=== PATIENT | male | born 1940 | race Caucasian/White ===

== ENCOUNTER → 2016-03-30 | Outpatient (CLI) | payer OTHER, BC ==
[~2016-03-30] VITALS: Ht 167.6 cm; Wt 82.5 kg
[~2016-03-30] MED LIST: ATORVASTATIN CA40 MG PO; CLONAZEPAM 1 MG1 M1 PO; CYMBALTA60 MG PO; FLOMAX0.4 MG PO; LINZESS145 MCG PO; LOSARTAN-HCTZ1 EAC3 PO; MEDROLDOSEPACK PO; NORVASC5 MG PO; ZETIA10 MG PO
--- NOTE | ~2016-03-30 | HPC ---
[facility] [address] [place] [address] PAIN MANAGEMENT CONSULTATION Name: GISSELLE DE LA TORRE Dulce Maria Room #: REG [facility]#: [id number] Admission: 03/30/16 Attend Phys: Debra Gray MD Discharge: Date of : 42 Report #: [id number] THIS REPORT FOR: //name// CC: Brian Gray PRIMARY CARE PHYSICIAN: Ann Hayden M.D. CHIEF COMPLAINT: Low back pain. HISTORY OF PRESENT ILLNESS: The patient is a 75-year-old gentleman who has been referred to the pain clinic because of low back pain. He has been experiencing pain for about 5 years. He describes it as constant pain involving the center of his back and down into both his left and right side. He notes that the pain is worse when he is bending over for any length of time. Sitting in a chair can be problematic, riding in a car, walking stairs and lying down improves his pain. He describes as continuous, steady, constant, shooting, burning, aching and rates it as an 8/10. He denies any injury to his back. PAST MEDICAL HISTORY: Heart disease, colon problems, hypertension, joint disease/arthritis. ALLERGIES: No known drug allergies. MEDICATIONS: Lipitor 80 mg 1 daily, amlodipine 5 mg tablets one daily, losartan/hydrochlorothiazide 100/25, Coreg 3.125 mg, Linzess 14.5, clonazepam 1 tablet daily, Flomax 0.4 mg, Duloxetine 60 mg, Zetia 10 mg. PAST SURGICAL HISTORY: Total right hip September 2009, colon surgery September 2007. 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 REVIEW OF SYSTEMS: A 14-point review of systems in the chart indicates generally good health, wears glasses, changes in bowel, reoccurring headaches, tremors, nervousness, depression. LABORATORY: MRI of the lumbar spine dated 03/16/2016: 1. L1-L2 shows severe degenerative disk disease with diffuse disk bulge. There is mild to moderate facet osteoarthritis. Mild spinal stenosis/moderate to severe left neural foraminal narrowing and mild right neural foraminal narrowing. 2. L2-L3, there is severe degenerative disk disease with diffuse disk bulge. There is moderate bilateral facet arthrosis causing moderate spinal stenosis and moderate bilateral neural foraminal narrowing. 3. L3-L4, moderate to severe degenerative disk disease. There is mild to [address] [address] PAIN MANAGEMENT CONSULTATION Name: GISSELLE DE LA TORRE [facility] [id number] Admission: 03/30/16 Attend Phys: Debra Gray MD Discharge: Date of : 42 Report #: [id number] moderate bilateral facet arthrosis. This causes mild spinal stenosis, mild left neural foraminal narrowing and moderate to severe right neural foraminal narrowing. 4. L4-L5, there is mild degenerative disk disease with mild disk bulge. There is severe bilateral facet osteoarthritis. This causes moderate spinal stenosis and yvajelqu-sc-sxcuzz bilateral neural foraminal narrowing. PHYSICAL EXAMINATION: Blood pressure is 153/80, pulse 77, respiratory rate 14, room air saturation 96%. The patient has not fallen in the last three months. His BMI is 29.4, height 167 cm, weight 82 kilograms. The patient has pain and discomfort in the lower portion of his back. He notes that pain goes down into both buttocks. He describes it burning and aching, pulling sensation. He rates it as an 8/10. Bending, sitting, climbing stairs, walking can exacerbate his pain and discomfort. The patient notes pain and discomfort after standing for a brief period of time in front of the mirror or in the kitchen sink area. Has difficulty walking through shopping centers without the use of the cart. He stands and leans forward on the cart when in line because of the pain and discomfort. IMPRESSION: Findings consistent with spinal stenosis with lumbar radicular pain down into both buttocks. RECOMMENDATIONS: We discussed treatment options with the patient. Risks and benefits of an epidural steroid injection were discussed. The patient at this juncture would like to consider the most conservative approach. We will try a Medrol Dosepak in the interim. He will follow up in the near future. Option of an epidural steroid injection has been given. We will see how things go with the conservative approach and consider an epidural steroid injection in the future. We would like to thank you for letting us participate in his care. We hope he continues to improve. <ELECTRONICALLY SIGNED> By: Debra Gray MD 04/17/16 1018 1519 0056 Debra Gray MD /nt
[2016-03-30 13:58] VITALS: BP 153/80
== END | disposition home or self-care (01) ==
LOC: PAIN 07:35
DX: M47.896 Other spondylosis, lumbar region (principal); M48.06 Spinal stenosis, lumbar region; I11.9 Hypertensive heart disease without heart failure; M19.90 Unspecified osteoarthritis, unspecified site

== ENCOUNTER → 2016-08-29 | Outpatient (CLI) | payer OTHER, BC ==
[~2016-08-29] VITALS: Ht 167.6 cm; Wt 79.2 kg
--- NOTE | ~2016-08-29 | HPC ---
[facility] [address] [address] PAIN MANAGEMENT CONSULTATION Name: GISSELLE DE LA TORRE Room #: REG [facility]#: [id number] Admission: 08/29/16 Attend Phys: Debra Gray MD Discharge: Date of : 42 Report #: [id number] THIS REPORT FOR: //name// CC: Brian Gray DATE OF SERVICE: 08/29/2016 DATE OF SERVICE: 08/29/2016 FOLLOWUP COMPLAINT: Here for an injection. The last one was greater than 90% improved for a number of months. FOLLOWUP HISTORY: The patient is a very pleasant 75-year-old gentleman, who has been seen in the pain clinic because of the pain and discomfort, which radiates down into his buttocks bilaterally. He rates his pain as an 8/10. After the last injection, he noted good relief. There was a considerable amount of improvement and he was able to engage in activities of daily living. He would not be able to without their use. At this juncture, he has noted return of the pain. Bending, sitting, stairs and walking can exacerbate his discomfort. He notes some improvement with use of his medications as well as with resting and lying down. IMPRESSION: 1. Spinal stenosis. 2. Lumbar radiculopathy. 3. L4-L5, there is degenerative disk with mild disk bulge. 4. 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 5. There is moderate spinal stenosis with hwbtuaub-jo-jbfglg bilateral neural foraminal narrowing. 6. L3-L4, mqbbdjgd-ht-yxqbol degenerative disk disease with diffuse bulge. This causes some mild spinal stenosis, mild left neural foraminal narrowing and moderate to severe right neural foraminal narrowing. RECOMMENDATIONS: We discussed treatment options with the patient. Risks and benefits of an epidural steroid injection were again reviewed. Possible complications were explained. They can include infection, bleeding, headache, nerve damage, muscle soreness, but are not limited to the preceding. The patient elects to proceed. PROCEDURE NOTE: The patient was placed in the prone position. Fluoroscopy was used to identify the L4-L5 interspace. This area had been sterilely prepped with Betadine and infiltrated with 0.25% bupivacaine. Total of 80 mg Depo-Medrol, 40 mg triamcinolone and 2 mL of 0.25% bupivacaine was injected. The patient tolerated the procedure well. There were no complications. We [address] [address] PAIN MANAGEMENT CONSULTATION Name: GISSELLE DE LA TORRE Room #: REG CLI [facility]#: [id number] Admission: 08/29/16 Attend Phys: Debra Gray MD Discharge: Date of : 42 Report #: [id number] would like to thank you for letting us participate in his care. We hope he continues to improve. By: 1426 1452 Debra Gray MD /nt
[2016-08-29 10:21] VITALS: BP 151/98
== END | disposition home or self-care (01) ==
LOC: PAIN 07:04
DX: M54.16 Radiculopathy, lumbar region (principal); M48.06 Spinal stenosis, lumbar region; M51.36 Other intervertebral disc degeneration, lumbar region

== ENCOUNTER → 2016-10-31 | Outpatient (CLI) | payer OTHER, BC ==
[~2016-10-31] VITALS: Ht 167.6 cm; Wt 78.8 kg
--- NOTE | ~2016-10-31 | HPC ---
[facility] [place] [address] [place] [address] PAIN MANAGEMENT CONSULTATION Name: GISSELLE DE LA TORRE Room #: REG [facility]#: [id number] Admission: 10/31/16 Attend Phys: Debra Gray MD Discharge: Date of : 42 Report #: [id number] THIS REPORT FOR: //name// CC: Brian Gray DATE OF SERVICE: 10/31/2016 CHIEF COMPLAINT: Pain down into the low back and into both buttocks and down into the right leg. HISTORY OF PRESENT ILLNESS: The patient is a 75-year-old gentleman who has been seen in the pain clinic because of lumbar radiculopathy. He has undergone epidural steroid injections and gleaned significant improvement after the last injection. He rates his pain as an 8/10 at this juncture. He has not had any problems after the previous injection. As you recall, he has had problems with his back for about the last 5 years. He notes worsening of pain with standing, walking and bending and notes improvement with use of medications and sitting. PHYSICAL EXAMINATION: Blood pressure 128/75, pulse 73, respiratory rate 16, room air saturation 97%. Height 6 feet 0 inches, weight 173 pounds, BMI 28. The patient has not fallen since we saw him last. IMPRESSION: 1. Spinal stenosis with lumbar radiculopathy. 2. At L4-L5, there is a degenerative disk with a mild disk bulge. 3. 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 4. There is moderate spinal stenosis and dzztzqnl-mz-vcvntd bilateral neural foraminal narrowing. 5. L3-L4, vargtwyt-pl-mybeoz degenerative disk disease with diffuse bulge. This causes some mild spinal stenosis, mild left neural foraminal narrowing and unaozaiq-tq-chdrfm right neural foraminal narrowing. RECOMMENDATIONS: We discussed treatment options with the patient. Risks and benefits of an epidural steroid injection were again reviewed. Possible complication of the procedure was discussed. The patient elects to proceed. PROCEDURE NOTE: The patient was placed in the prone position. Fluoroscopy was used to identify the L4-L5 interspace. This area had been sterilely prepped with Betadine and infiltrated with 0.25% bupivacaine. A total of 80 mg Depo-Medrol, 40 mg triamcinolone and 2 mL of 0.25% bupivacaine was injected. The patient tolerated the procedure well. There were no complications. We [address] [address] PAIN MANAGEMENT CONSULTATION Name: GISSELLE DE LA TORRE Room #: REG CLI [facility]#: [id number] Admission: 10/31/16 Attend Phys: Debra Gray MD Discharge: Date of : 42 Report #: [id number] would like to thank you for letting us participate in his care. We hope he continues to improve. By: 1241 0447 Debra Gray MD /
[2016-10-31 09:02] VITALS: BP 128/75
== END | disposition home or self-care (01) ==
LOC: PAIN 07:08
DX: M51.16 Intervertebral disc disorders with radiculopathy, lumbar region (principal); M48.06 Spinal stenosis, lumbar region

== ENCOUNTER → 2017-01-02 | Outpatient (CLI) | payer OTHER, BC ==
[~2017-01-02] VITALS: Ht 165.1 cm; Wt 78.9 kg
--- NOTE | ~2017-01-02 | HPC ---
[facility] [address] [place] [address] PAIN MANAGEMENT CONSULTATION Name: BRITTGISSELLE D Room #: REG [facility]#: [id number] Admission: 01/02/17 Attend Phys: Debra Gray MD Discharge: Date of : 42 Report #: [id number] THIS REPORT FOR: //name// CC: GALA Gray DATE OF SERVICE: 01/02/2017 FOLLOWUP COMPLAINT: "Pain improved after last injection. I noticed some increased sensation down my right leg, which has been numb since my hip surgery." FOLLOWUP HISTORY: The patient is a very pleasant 76-year-old gentleman who has been seen in the pain clinic because of lumbar radiculopathy. He underwent an epidural steroid injection at the last visit. He has noted improvement in his pain. He rates his pain and discomfort as 8/10. He has had no complication from the procedure. He has noticed some improvement in his right leg. There has been numbness and tingling in this area since his hip replacement. He has noted some improvements and feels that this change has been good. He has had no complication from the last procedure. He would like to proceed with another epidural steroid injection to help decrease the pain and discomfort, which he is experiencing. PHYSICAL EXAMINATION: Blood pressure is 146/80, pulse 73, respiratory rate 16, room air saturation is 98, height 5 feet 5 inches, weight 174 pounds, BMI is 29. The patient has pain and discomfort in the lower portion of his back with pain radiating down into his left leg with numbness, tingling and weakness. He has some discomfort in the right buttocks area as well. IMPRESSION: 1. Lumbar stenosis with lumbar radiculopathy. 2. L4-L5, there is a degenerative disk with a mild disk bulge. 3. 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 There is moderate spinal stenosis and gwhuuwsj-ox-dbeqca bilateral neural foraminal narrowing. 4. L3-L4, moderate to severe degenerative disk disease with diffuse bulge. This causes mild spinal stenosis, mild left neural foraminal narrowing and moderate to severe right neural foraminal narrowing. RECOMMENDATIONS: We discussed treatment options with the patient. Risks and benefits of the procedure were again reviewed. Possible complications which could include, but are not limited to infection, increased muscle soreness, headache, bleeding, nerve damage, muscle damage. The patient elects to proceed. PROCEDURE NOTE: The patient was placed in the prone position. Fluoroscopy was used to identify the L4-L5 interspace. This [place] [address] PAIN MANAGEMENT CONSULTATION Name: GISSELLE DE LA TORRE Room #: REG [facility]#: [id number] Admission: 01/02/17 Attend Phys: Debra Gray MD Discharge: Date of : 42 Report #: [id number] with Betadine and infiltrated with 0.25% bupivacaine. Total of 80 mg Depo-Medrol, 40 mg triamcinolone and 2 mL of 0.25% bupivacaine was injected. The patient tolerated the procedure well. There were no complications. We would like to thank you for letting us participate in his care. We hope he continues to improve. <ELECTRONICALLY SIGNED> By: Debra Gray MD 01/04/17 0825 1258 0058 Debra Gray MD /[facility]
[2017-01-02 09:45] VITALS: BP 146/80
== END | disposition home or self-care (01) ==
LOC: PAIN 07:25
DX: M51.36 Other intervertebral disc degeneration, lumbar region (principal); M48.061 Spinal stenosis, lumbar region without neurogenic claudication; Z79.899 Other long term (current) drug therapy

== ENCOUNTER → 2017-03-01 | Outpatient (CLI) | payer OTHER, BC ==
[~2017-03-01] VITALS: Ht 165.1 cm; Wt 79.4 kg
--- NOTE | ~2017-03-01 | HPC ---
[facility] [place] [address] [place] [address] PAIN MANAGEMENT CONSULTATION Name: DE LA TORREGISSELLE Dulce Maria Room #: REG [facility]#: [id number] Admission: 03/01/17 Attend Phys: Debra Gray MD Discharge: Date of : 42 Report #: [id number] THIS REPORT FOR: //name// CC: Brian Gray DATE OF SERVICE: 03/01/2017 FOLLOWUP COMPLAINT: Noticed pain that is going down in my leg again and I would like to get another injection. FOLLOWUP HISTORY: The patient is a 76-year-old gentleman who has been seen in the pain clinic because of lumbar radiculopathy involving his right leg. He has undergone epidural steroid injections in the past and gleaned benefits from these. At this juncture, he has noticed that his pain has increased. He is having pain that is radiating down into the low back and into both buttocks. He rates it as a 7/10. Standing, walking and bending exacerbate his discomfort. PHYSICAL EXAMINATION: Blood pressure 131/76, pulse 64, respiratory rate 15, room air saturation 96%. Height 5 feet 5 inches, weight 175 pounds, BMI is 29. The patient has not fallen since we saw him last. He continues to have pain and discomfort, which radiates down into the L4-L5 distribution with numbness, weakness and tenderness affecting his leg. IMPRESSION: 1. Lumbar stenosis with lumbar radiculopathy. 2. L4-L5, there is a degenerative disk with mild disk bulge. 3. 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 There is moderate spinal stenosis and ccaztuqd-mv-lpbnsd bilateral neural foraminal narrowing. 4. L3-L4, csocahom-sv-soqnai degenerative disk disease with diffuse bulge. This causes mild spinal stenosis, mild left neural foraminal narrowing and jmkrlnrc-sl-swowkh right neural foraminal narrowing. RECOMMENDATIONS: We discussed treatment options with the patient. Risks and benefits again of the epidural steroid injection were discussed. Possible complications which could include but are not limited to infection, increased muscle soreness, headache, bleeding, nerve damage and muscle damage. The patient elects to proceed. PROCEDURE NOTE: The patient was placed in the prone position. Fluoroscopy was used to identify the L4-L5 interspace. This area had been sterilely prepped with Betadine and infiltrated with 0.25% bupivacaine. Total of 80 mg of Depo-Medrol, 40 mg of triamcinolone and 2 mL of 0.25% bupivacaine was injected. The patient tolerated the procedure well. There were no complications. He remained in the pain clinic for an appropriate amount of time[place] [address] PAIN MANAGEMENT CONSULTATION Name: GISSELLE DE LA TORRE Room #: REG [facility]#: [id number] Admission: 03/01/17 Attend Phys: Debra Gray MD Discharge: Date of : 42 Report #: [id number] thank you for letting us participate in his care. We hope he continues to improve. By: 1616 0111 Debra Gray MD /TORO
[2017-03-01 10:02] VITALS: BP 131/76
== END | disposition home or self-care (01) ==
LOC: PAIN 07:36
DX: M51.36 Other intervertebral disc degeneration, lumbar region (principal); M48.061 Spinal stenosis, lumbar region without neurogenic claudication; M46.86 Other specified inflammatory spondylopathies, lumbar region; Z79.899 Other long term (current) drug therapy; Z98.890 Other specified postprocedural states

== ENCOUNTER → 2017-05-01 | Outpatient (CLI) | payer OTHER, BC ==
[~2017-05-01] VITALS: Ht 167.6 cm; Wt 79.1 kg
[~2017-05-01] MED LIST changes: +ALDACTONE25 MG PO
--- NOTE | ~2017-05-01 | HPC ---
[facility] [address] [place] [address] PAIN MANAGEMENT CONSULTATION Name: GISSELLE DE LA TORRE Room #: REG [facility]#: [id number] Admission: 05/01/17 Attend Phys: Debra Gray MD Discharge: Date of : 42 Report #: [id number] THIS REPORT FOR: //name// CC: Brian Gray DATE OF SERVICE: 05/01/2017 FOLLOWUP COMPLAINT: Back pain that radiates down into the right leg. FOLLOWUP HISTORY: The patient is a 76-year-old gentleman who has been seen in the pain clinic because of lumbar radiculopathy. He has undergone epidural steroid injections in the past. He noticed that his pain has now started to reoccur. He feels that the discomfort has risen to the level that he feels that another injection would be beneficial. He states that he did not want to wait until the pain had become unbearable. He has had no complication from the injections in the past. Had no new change in bowel or bladder function. Continues to have pain and discomfort, which radiates down into the back in the L4-L5 distribution. Notes that walking, standing and activities of daily living can exacerbate his discomfort. Riding the car has been problematic, climbing stairs, sitting, bending, and standing all can worsen his discomfort. Rates it as a 6-7 at this juncture. Involves both buttocks area and down into the right leg. ALLERGIES: No known drug allergies. MEDICATIONS: Zetia 10 mg daily, Cymbalta 60 mg daily, Flomax 0.4 mg daily, clonazepam 1 mg b.i.d., Linzess 145 mcg capsules daily, lisinopril/hydrochlorothiazide 100/25, Norvasc 5 mg daily, Lipitor 40 mg daily. PAIN CLINIC ASSESSMENT: 1. The patient is not being treated for osteoarthritis or rheumatoid arthritis. 2. Height 5 feet 6 inches, weight 174 pounds, BMI is 28. 3. Vital signs: Blood pressure 139/77, pulse 76, respiratory rate 16, room air saturation is 96%. 4. Pain intensity rated as 6-7/10. 5. Fall risk. The patient has not fallen in the last 3 months. He is not at fall risk. 6. The patient is not on a blood thinner. 7. The patient is being treated for hypertension. 8. Opioid therapy greater than 6 weeks. The patient is not on opioid medication for greater than 6 weeks. 9. Risk assessment tool. Low risk for opioid, rated as 0/3. 10. Functional assessment tool. Rated as 41/70, in regards to general activities, mood, walking ability, work, relationships with others, sleep, [address] [address] PAIN MANAGEMENT CONSULTATION Name: GISSELLE DE LA TORRE Room #: REG [facility]#: [id number] Admission: 05/01/17 Attend Phys: Debra Gray MD Discharge: Date of : 42 Report #: [id number] enjoyment of life. 11. Recreational drug use. Never used drugs. 12. Tobacco use, never used tobacco. 13. Alcohol. Denies use of alcoholic beverages. PHYSICAL EXAMINATION: GENERAL: The patient is a well-developed male with no significant physical problems. Appearance: Appears as stated age. Orientation: The patient is alert and oriented x 3. Affect: The patient is appropriate with his affect. HEENT: Normocephalic, atraumatic. Extraocular eye muscles intact. No nasal complaints. Hearing, good, within normal limits. Moist buccal membranes. NECK: Without adenopathy or JVD. LUNGS: Clear to auscultation. HEART: Regular rate. ABDOMEN: Nontender. MUSCULOSKELETAL: Normal alignment without significant scoliosis, kyphosis, or lordosis. Gait appears within normal limits. Back lumbar flexion and extension, increased pain and discomfort as well as pain down into the lumbar area in the L4-L5 distribution. Muscle strength is judged to be 5/5 for the major muscle groups in the lower extremity. IMPRESSION: 1. Lumbar stenosis with lumbar radiculopathy. 2. L4-L5, there is degenerative disk with mild disk bulge. 3. 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 There is moderate spinal stenosis and kjhcbpjc-za-fdumxx bilateral neural foraminal narrowing. 4. L3/L4 moderate to severe degenerative disk disease with diffuse bulge. This causes mild spinal stenosis, mild left neural foraminal narrowing, and qedddvjk-yu-qoovss right neural foraminal narrowing. RECOMMENDATIONS: We discussed treatment options with the patient. The risk and benefits of an epidural steroid injection were again discussed. Possible complications, which could include but are not limited to infection, increased muscle soreness, headache, bleeding, nerve damage, muscle damage, improvement or no improvement were discussed. The patient elects to proceed. PROCEDURE NOTE: The patient was placed in the prone position. Fluoroscopy was used to identify the L4-L5 interspace. This area had been sterilely prepped with Betadine and infiltrated with 0.25% bupivacaine. Total of 80 mg Depo-Medrol, 40 mg triamcinolone, and 2 mL of 0.25% bupivacaine was injected. The patient tolerated the procedure well. There were no complications. A Band-Aid was placed in the site. There was no bleeding. He was then taken to the recovery room, where he remained for an appropriate amount of time. There were no complications. He will follow up in the future as needed. We would [facility] [address] [place] [address] PAIN MANAGEMENT CONSULTATION Name: BRITTGISSELLE Dulce Maria Room #: REG [facility] Lucia.#: [id number] Admission: 05/01/17 Attend Phys: Debra Gray MD Discharge: Date of : 42 Report #: [id number] like to thank you for letting us participate in his care. We hope he continues to improve. <ELECTRONICALLY SIGNED> By: Debra Gray MD 05/22/17 1434 0836 1207 Debra Gray MD /PMT
[2017-05-01 09:29] VITALS: BP 139/77
== END ==
LOC: PAIN 06:45
DX: M54.16 Radiculopathy, lumbar region (principal); M47.896 Other spondylosis, lumbar region

== ENCOUNTER → 2017-06-12 | Outpatient (CLI) | payer OTHER, BC ==
[~2017-06-12] VITALS: Ht 167.6 cm; Wt 80.9 kg
--- NOTE | ~2017-06-12 | HPC ---
[facility] [address] [address] PAIN MANAGEMENT CONSULTATION Name: GISSELLE DE LA TORRE Room #: [facility] [id number] Admission: 06/12/17 Attend Phys: Debra Gray MD Discharge: Date of : 44 Report #: [id number] THIS REPORT FOR: //name// CC: Dr. Brian Gray DATE OF SERVICE: 06/12/2017 FOLLOWUP COMPLAINT: Had noted some worsening of the pain in the low back area and down into both buttocks and in the right leg. Has returned for another injection. He rates the pain as 7/10. FOLLOWUP HISTORY: The patient is a very pleasant 76-year-old gentleman who has been seen in the pain clinic because of lumbar radiculopathy. He has undergone epidural steroid injections in the past. He finds that these are beneficial. He notes that his pain has increased again. He returned today for another injection. He notes greater than 50% improvement in pain after the injections. He has had no complication from their use. He denies any bowel or bladder dysfunction. He continues to be active. He feels that some of the pain was exacerbated by movement of some planters in his yard. After moving these planters, he did note some worsening of his pain and discomfort and notes that his pain has risen to the level of 7/10. He notes that standing, bending and movement as well as prolonged sitting can be problematic. Ride in his car is uncomfortable. He denies any problems with mentation. ALLERGIES: No known drug allergies. MEDICATIONS: Zetia 10 mg daily, Cymbalta 600 mg daily, Flomax 0.4 mg, clonazepam 1 mg b.i.d., Linzess 145 mcg capsules daily, lisinopril/hydrochlorothiazide 100/25, Norvasc 5 mg daily, Lipitor 40 mg daily. PAIN ASSESSMENT: 1. The patient has not been treated openly for osteoarthritis or rheumatoid arthritis. 2. Height 5 feet 6 inches, weight 178 pounds, BMI is 28. 3. Vital signs: Blood pressure 190/78, pulse 66, respiratory rate 18, room air saturation 99%. 4. Pain intensity /10. 5. Fall risk: The patient has not fallen in the last 3 months. 6. Blood thinner: The patient is not on a blood thinning agent. 7. History of hypertension: The patient has not been treated for hypertension. 8. Opioid therapy greater than 6 weeks: The patient is not on opioid therapy on a regular basis. 9. Risk assessment tool: Low with a score of 0/8. 10. Functional assessment tool. [address] [address] PAIN MANAGEMENT CONSULTATION Name: GISSELLE DE LA TORRE Room #: REG [facility]#: [id number] Admission: 06/12/17 Attend Phys: Debra Gray MD Discharge: Date of : 42 Report #: [id number] 11. Recreational drug use: Denies use of recreational drug use. 12. Tobacco: Never smoked cigarettes. 13. Alcohol: Denies frequent use of alcoholic beverages. PHYSICAL EXAMINATION: GENERAL: The patient is a well-developed, well-nourished white male. He appears his stated age. He is oriented x 3. Speech is fluent. HEENT: Normocephalic, atraumatic. Extraocular eye muscles intact. Nasal complaints are none. Hearing, has good hearing. Mucous membranes are moist. Conjunctiva is normal. NECK: Without adenopathy or JVD. Good range of motion. LUNGS: Clear to auscultation. HEART: Regular rate. ABDOMEN: Nontender. MUSCULOSKELETAL: Has normal alignment without significant scoliosis, kyphosis, or lordosis. Gait appears within normal limits. The patient has pain in the low back area with increased discomfort with flexion and extension. Has some pain radiating down the L4-L5 distribution. Muscle straight is judged to be 5/5 for the major muscle groups in the lower extremities. IMPRESSION: 1. Lumbar stenosis with lumbar radiculopathy, exacerbated after movement of items at home. 2. At L4-L5, there is degenerative disk with mild disk bulge. 3. 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 There is moderate spinal stenosis and iweewmxz-im-rmkloe bilateral neural foraminal narrowing. 4. At L3-L4, yvglojdc-if-iilpee degenerative disk disease with bulging disk. This causes mild spinal stenosis, mild left neural foraminal narrowing, and moderate to severe right neural foraminal narrowing. RECOMMENDATIONS: We discussed treatment options with the patient. Risks and benefits of another epidural steroid injection were again reviewed. Possible complication of the procedure, which could include but are not limited to infection, increased muscle soreness, headache, bleeding, nerve damage, spinal headache were discussed and the patient elects to proceed. PROCEDURE NOTE: The patient was assisted to the examination table. He was placed in the prone position. Fluoroscopy was used to identify the L4-L5 position. Anterior, posterior, and lateral views of fluoroscopy was used. After the target zone was noted, 0.25% bupivacaine was infiltrated into this area. A 17-gauge Tuohy with loss of resistance technique was used to gain access to the epidural space. There was no CSF, heme, or paresthesia. Total of 80 mg Depo-Medrol, 40 mg triamcinolone, and 2 mL of 0.25% bupivacaine was injected. The patient tolerated the procedure well. There were no complications. A total of 8 seconds fluoroscopy time was used. The patient's pain decreased from 7 to 0 at the time of discharge. He will continue with his [facility] [address] [place] [address] PAIN MANAGEMENT CONSULTATION Name: GISSELLE DE LA TORRE Room #: REG [facility]#: [id number] Admission: 06/12/17 Attend Phys: Debra Gray MD Discharge: Date of : 42 Report #: [id number] current medications and call us if he has any problems. We would like to thank you for letting us participate in his care. We hope he continues to improve. By: [id number] Debra Gray MD /TORO
[2017-06-12 08:33] VITALS: BP 190/78
== END | disposition home or self-care (01) ==
LOC: PAIN 06:55
DX: M51.16 Intervertebral disc disorders with radiculopathy, lumbar region (principal); G89.29 Other chronic pain; M48.061 Spinal stenosis, lumbar region without neurogenic claudication; Z79.899 Other long term (current) drug therapy; Z79.891 Long term (current) use of opiate analgesic; Z98.890 Other specified postprocedural states

== ENCOUNTER → 2017-08-14 | Outpatient (CLI) | payer OTHER, BC ==
[~2017-08-14] VITALS: Ht 167.6 cm; Wt 78.3 kg
--- NOTE | ~2017-08-14 | HPC ---
[facility] [address] [place] [address] PAIN MANAGEMENT CONSULTATION Name: GISSELLE DE LA TORRE Room #: [facility] [id number] Admission: 08/14/17 Attend Phys: Debra Gray MD Discharge: Date of : 42 Report #: [id number] THIS REPORT FOR: //name// CC: [facility] physician/PCP Brian Gray DATE OF SERVICE: 08/14/2017 FOLLOWUP COMPLAINT: The pain was significantly improved after the last injection, but now has returned to an 8/10. It is down into the right buttocks and into the right leg. FOLLOWUP HISTORY: The patient is a very pleasant 76-year-old gentleman who has been followed in the pain clinic because of lumbar radiculopathy. He has undergone epidural steroid injections. He has some significant pathology in the right lower back area with arthritic changes and pain, which radiates down into his right leg. He gleaned greater than 50% improvement after the last injection. Overall, things have been going reasonably well, but have now returned and noted increased pain with activities of daily living. Denies any real bowel or bladder dysfunction. Continues to stay active. Notes that he does try and do some gardening activities. These can exacerbate and worse in the pain and discomfort in his low back area. Notes that standing, bending and sitting for a prolonged period of time can be problematic. The patient went to [place]. Noticed that long rides in the car did somewhat exacerbate pain and discomfort in his back. ALLERGIES: No known drug allergies. MEDICATIONS: Zetia 10 mg daily, Cymbalta 600 mg daily, Flomax 0.4 mg, clonazepam 1 mg b.i.d., Linzess 145 mcg capsules daily, lisinopril/hydrochlorothiazide 100/25, Norvasc 5 mg daily, Lipitor 40 mg daily. PAIN CLINIC ASSESSMENT: 1. The patient does have some arthritic changes in the lower portion of his back. 2. Height 5 feet 6 inches, weight 172 pounds, BMI is 27.9. 3. Vital Signs: Blood pressure 143/90, pulse 76, respiratory rate 16, room air saturation 98%. 4. Pain intensity 10/18. 5. Fall risk. The patient has not fallen in the last 3 months. 6. Blood thinner. The patient is not on a blood thinning agent. 7. History of hypertension. The patient is being treated for hypertension. 8. Opioid therapy greater than 6 weeks. [place] [address] PAIN MANAGEMENT CONSULTATION Name: BRITTGISSELLE Dulce Maria Room #: REG [facility]#: [id number] Admission: 08/14/17 Attend Phys: Debra Gray MD Discharge: Date of : 42 Report #: [id number] contract. 9. Risk assessment tool, low 0/3. 10. Functional assessment tool. 11. Recreational drug use. The patient denies use of recreational drugs 12. Tobacco: The patient denies use of tobacco. 13. Alcohol: The patient denies use of alcohol. PHYSICAL EXAMINATION: GENERAL: The patient is a well-developed, well-nourished white male. He appears his stated age. He is alert and oriented x 3. His speech is fluent. HEENT: Normocephalic, atraumatic. Extraocular eye muscles intact. The patient wears glasses. He has moist mucous membranes. Hearing is within normal limits. Conjunctivae are nonicteric. NECK: Without adenopathy or JVD. Good range of motion. LUNGS: Clear to auscultation. HEART: Regular rate without murmur. ABDOMEN: Nontender. MUSCULOSKELETAL: Without significant scoliosis, kyphosis or lordosis. The patient's gait is within normal limits. Does complain of some pain and discomfort in the lower portion of his back with pain that radiates down into the right lower leg in the L4-L5 distribution. IMPRESSION: 1. Lumbar stenosis and lumbar radiculopathy, exacerbated with movement. 2. L4-L5, there is a degenerative disk with mild disk bulge. 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 There is mild spinal stenosis and sllekbci-ld-qofheb bilateral neural foraminal narrowing. 3. At L3-L4, pijrlmev-nn-oljwsm degenerative disk disease with disk bulge. This causes mild spinal stenosis, mild left neural foraminal narrowing and moderate to severe right neural foraminal narrowing. 4. Hypertension. 5. Hypercholesterolemia. 6. Possible BPH using Flomax. RECOMMENDATIONS: We discussed treatment options with the patient. Risks and benefits of an epidural steroid injection were again reviewed. The patient has had a good sore as read is a good result after epidural steroid injections in the past. He would like to proceed at this juncture with another injection. His pain is increased to 8/10. At this juncture, he continues to have pain that radiates down into the right posterior buttocks and into the L4-L5 distribution on his right leg. We will proceed with an epidural steroid injection. Risks and benefits which could include, but are not limited to infection, increased muscle soreness, headache, bleeding, paresis, paralysis, worsening of pain, no improvement in pain were discussed and the patient elects to proceed. PROCEDURE NOTE: The patient was placed in the prone position. Fluoroscopy was [address] [place] [address] PAIN MANAGEMENT CONSULTATION Name: GISSELLE DE LA TORRE Room #: REG [facility]#: [id number] Admission: 08/14/17 Attend Phys: Debra Gray MD Discharge: Date of : 42 Report #: [id number] used in anterior, posterior as well as a lateral approach were used for biplanar evaluation. At the right paraspinous area with 0.25% bupivacaine. at L4-L5 was placed. A 0.25% bupivacaine was infiltrated into this area. A 17-gauge Tuohy with loss of resistance technique was used to gain access to the epidural space. There was no CSF, heme or paresthesia. A total of 80 mg Depo-Medrol, 40 mg triamcinolone and 2 mL of 0.25% bupivacaine was injected. The patient tolerated the procedure well. There were no complications. A total of 14 seconds fluoroscopy time was used. The patient's pain decreased from 8-1 at the time of discharge. He will follow up in the future as needed. We would like to thank you for letting us participate in his care. We hope he continues to improve. <ELECTRONICALLY SIGNED> By: Debra Gray MD 08/21/17 1332 1551 05 Debra Gray MD /PMT
[2017-08-14 08:57] VITALS: BP 143/90
== END | disposition home or self-care (01) ==
LOC: PAIN 06:43
DX: M51.16 Intervertebral disc disorders with radiculopathy, lumbar region (principal); M48.061 Spinal stenosis, lumbar region without neurogenic claudication; M46.96 Unspecified inflammatory spondylopathy, lumbar region; I10 Essential (primary) hypertension; E78.00 Pure hypercholesterolemia, unspecified; Z79.899 Other long term (current) drug therapy

== ENCOUNTER → 2018-01-22 | Outpatient (CLI) | payer OTHER, BC ==
[~2018-01-22] VITALS: Ht 167.6 cm; Wt 78.2 kg
[2018-01-22 12:56] VITALS: BP 156/94
== END | disposition home or self-care (01) ==
LOC: PAIN 07:35
DX: M54.16 Radiculopathy, lumbar region (principal); G89.29 Other chronic pain; Z79.899 Other long term (current) drug therapy

== ENCOUNTER → 2018-07-02 | Outpatient (CLI) | payer OTHER, BC ==
[~2018-07-02] VITALS: Ht 167.6 cm; Wt 68.9 kg
--- NOTE | ~2018-07-02 | HPC ---
[facility] [address] [place] [address] PAIN MANAGEMENT CONSULTATION Name: DE LA TORREGISSELLE Dulce Maria Room #: REG [facility]#: [id number] Admission: 07/02/18 ������������������ Attend Phys: Debra Gray MD Discharge: ������������������ Date of : 42 Report #: [id number] THIS REPORT FOR: //name// CC: Brian Gray DATE OF SERVICE: 07/02/2018 CHIEF COMPLAINT: "I had back surgery and I have noticed some return of pain in my left as well as the right leg." I was seen by a vascular surgeon and he said it was not blood vessel issue. "I had surgery on 04/07." Things were going pretty well then I have noticed some increased pain and discomfort. The surgeon recommend that I come to have an injection. Pain starts out as a 7-8 and can progress and get worse as the day goes on. I would like to have an injection and see if things would improve. ALLERGIES: No known drug allergies. CURRENT MEDICATIONS: Spironolactone 25 mg, Zetia 10 mg, Cymbalta 60 mg, Flomax 0.4 mg, clonazepam 1 mg b.i.d., Linzess 145 mcg, losartan/hydrochlorothiazide 100/25, Norvasc 5 mg, and Lipitor 40 mg. PAIN CLINIC ASSESSMENT/PQRS: 1. The patient does have some arthritic changes in the lower portion of his back. He is not being treated for rheumatoid arthritis. 2. Height 5 feet 6 inches, weight 152 pounds, BMI is 24.5. 3. Vital signs: Blood pressure 135/81, pulse 71, respiratory rate 16, room air saturation 98%. 4. Pain intensity 10/18. 5. Fall history. The patient has not fallen in the last 3 months. 6. Blood thinner. The patient is not on a blood thinning medication. 7. Hypertension. The patient is being treated for hypertension. 8. Opioid greater than 6 weeks. The patient is not on opioid regimen. 9. Risk assessment tool: Low for opioid use. 10. Functional assessment tool. 11. Recreational drug use. The patient denies use of recreational drugs. 12. Tobacco: The patient has never smoked. 13. Alcohol: The patient denies use of alcoholic beverages. PHYSICAL EXAMINATION: GENERAL: The patient is a well-developed, well-nourished white male. Appears his stated age. He is alert and oriented x 3. His affect is appropriate. Speech is fluent. HEENT: Normocephalic, atraumatic. Extraocular eye muscles intact. Sclerae nonicteric. Mucous membranes are moist. [address] [address] PAIN MANAGEMENT CONSULTATION Name: GISSELLE DE LA TORRE Room #: REG [facility]#: [id number] Admission: 07/02/18 ������������������ Attend Phys: Debra Gray MD Discharge: ������������������ Date of : 42 Report #: [id number] NECK: Without adenopathy or JVD. LUNGS: Clear to auscultation. HEART: Regular rate. S1, S2. ABDOMEN: Nontender. Bowel sounds present. MUSCULOSKELETAL: Without significant scoliosis, kyphosis or lordosis. The patient has a well-healed scar in the lumbar area near L4 through the sacral area. He complains of pain and discomfort, which is radiating down in the L4-L5 dermatomal distribution on the left as well as on the right. IMPRESSION: 1. Lumbar radiculopathy, L4-L5 distribution, left and right. 2. History spinal stenosis. 3. Status post lumbar surgery with fusion and rods and screw placements. 4. Hypertension. 5. Hypercholesterolemia. 6. Possible benign prostatic hypertrophy. RECOMMENDATIONS: We discussed treatment options with the patient. Risks and benefits of an injection in the back area was discussed. The patient has undergone recent surgery in the lumbar area. This was in March. Things have healed well. He is having pain and discomfort in the left and the right L4-L5 dermatomal distributions. At this juncture, we will proceed with a transforaminal approach. We explained to the patient that a midline approach would be more difficult given that the patient has developed scar tissue and that landmarks have been changed. Possible complications of the procedure, which could include but are not limited to infection, worsening of pain, no improvement in pain, nerve damage, and bleeding were explained. The patient elects to proceed. PROCEDURE NOTE: The patient was taken to the procedure area. He was assisted in getting on the examination table. His back was sterilely prepped with a Betadine solution and allowed to dry. Fluoroscopy using anterior as well as posterior viewing were implemented. The right L4-L5 area was sterilely prepped and identified. A 25-gauge needle was then used to numb the area between the L4 and L5 bodies. A 25-gauge needle was then used to inject 0.25% bupivacaine. A 20-gauge spinal needle was then advanced using fluoroscopy into the appropriate position for transverse injection. The area was then injected with 80 mg Depo-Medrol. There was no pain or discomfort during the injection. The left L4-L5 area was then identified. Fluoroscopy was then used to place the needle in the transforaminal approach. A 0.25% bupivacaine was infiltrated using a 25-gauge needle. A 20-gauge spinal needle was then advanced in the L4-L5 area using the transforaminal approach. There was no complaint of pain or discomfort during the procedure. A total of 80 mg Depo-Medrol was injected after appropriate placement using anterior as well as lateral viewing. The patient remained in the pain clinic for an appropriate amount of time. A total of 26 seconds fluoroscopy time was used. The patient's pain decreased to 2-3 at the [facility] [address] [place] [address] PAIN MANAGEMENT CONSULTATION Name: GISSELLE DE LA TORRE Room #: REG CLI [facility]#: [id number] Admission: 07/02/18 ������������������ Attend Phys: Debra Gray MD Discharge: ������������������ Date of : 42 Report #: [id number] time of discharge. He will follow up in the future as needed. We would like to thank you for letting us participate in his care. We hope he continues to improve. ��������������������������������������������� ���������������������������������������� By: ��������������������������������������������� [id number] Debra Gray MD /TORO
[2018-07-02 08:11] VITALS: BP 135/81
--- NOTE | 2018-07-02 08:15 | NUR ---
Pain Clinic Assessment: 1. History of Osteoarthritis: NO History of Rheumatoid Arthritis: NO 2. Height: 5 ft. 6 in. 167.6 cm. Weight: 152.0 lb. oz. 68.947 kg. Patient's BMI: 24.5 3. Vital Signs: BP: 135/81 Pulse: 71 Resp: 16 Temp: 02 Sat: 98 ECG Mon: 4. Pain Intensity: 8 5. Fall Risk: Dizziness: N Needs help standing or walking: N Fallen in the last 3 months: N Fall risk comments: 6. Patient on Blood Thinner: None 7. History of Hypertension: Y 8. Opioid Therapy greater than 6 weeks: N Opiate Contract Signed: 9. Risk Assessment Tool Provided: LOW RISK 0/3 10. Functional Assessment Tool: 11. Recreational Drug Use: Never Drug Type: Tobacco Use: Never Smoker Tobacco Type: Amount or Packs/day: How Many Years: Alcohol Use: No Frequency: Quant:
== END | disposition home or self-care (01) ==
LOC: PAIN 06:54
DX: M54.16 Radiculopathy, lumbar region (principal); G89.29 Other chronic pain; I10 Essential (primary) hypertension; E78.00 Pure hypercholesterolemia, unspecified; Z98.890 Other specified postprocedural states; Z79.899 Other long term (current) drug therapy

== ENCOUNTER → 2018-09-17 | Outpatient (CLI) | payer OTHER, BC ==
[~2018-09-17] VITALS: Ht 167.6 cm; Wt 74.7 kg
--- NOTE | ~2018-09-17 | HPC ---
[facility] [address] [address] PAIN MANAGEMENT CONSULTATION Name: GISSELLE DE LA TORRE [facility] [id number] Admission: 09/17/18 ������������������ Attend Phys: Debra Gray MD Discharge: ������������������ Date of : 44 Report #: [id number] THIS REPORT FOR: //name// CC: Brian Gray DATE OF SERVICE: 09/17/2018 CHIEF COMPLAINT: The pain was helped with the last injection, but not as well as before I had my surgery. HISTORY OF PRESENT ILLNESS: The patient is a very pleasant 77-year-old gentleman who has been followed in the pain clinic. As you recall, he has had some problems with his back. He had surgery on 04/07. He has had pain, which has radiated down into the low back area and into his thigh area with numbness and tingling. He has returned today with the hopes of undergoing an epidural steroid injection to help quell his pain and discomfort. He is having some pain in the low back area that goes down into his back, into his buttocks bilaterally, right side goes down into his leg and involves his foot. Denies any new bowel or bladder dysfunction. He has had problems with his back for the last 5 years. Notes some aching soreness, tenderness and rates his pain as a 6-7. Standing, bending movements, climbing stairs are all still problematic. He notes his pain improves when he is lying down. His medications are helpful as well. ALLERGIES: No known drug allergies. MEDICATIONS: Spironolactone 25 mg, Zetia 10 mg, Cymbalta 60 mg, Flomax 0.4 mg, clonazepam 1 mg b.i.d., Linzess 145 mcg, losartan/hydrochlorothiazide 100/25, Norvasc 5 mg, and Lipitor 40 mg. PAIN CLINIC ASSESSMENT AND PQRS: 1. The patient has some arthritic change in the lower portion of his back and has had back fusion. He is not being treated for rheumatoid arthritis. 2. Height is 5 feet 6 inches, weight 164 pounds, BMI is 26.6. 3. VITAL SIGNS: Blood pressure 116/66, pulse 62, respiratory rate 16, room air saturation 99%, temperature is 97.8. Pain 6-7. 4. Fall risk. The patient has not fallen in the last 3 months. 5. Blood thinner. The patient is not on a blood thinning medication. 6. Hypertension. The patient is being treated for hypertension. 7. Opiates greater than 6 weeks. 8. Risk assessment tool, low for opioid use, 9. Functional assessment tool. 10. Recreational drug use. The patient denies. 11. Tobacco: The patient has never smoked. 12. Alcohol: The patient denies use of alcoholic beverages. [facility] [address] [place] [address] PAIN MANAGEMENT CONSULTATION Name: GISSELLE DE LA TORRE Room #: REG [facility] Amalia#: [id number] Admission: 09/17/18 ������������������ Attend Phys: Debra Gray MD Discharge: ������������������ Date of : 42 Report #: [id number] PHYSICAL EXAMINATION: GENERAL: The patient is a well-developed, well-nourished white male. Appears his stated age. He is alert and oriented x 3. His affect is appropriate. Speech is slow. HEENT: Normocephalic, atraumatic. Extraocular eye muscles intact. Mucous membranes are moist. NECK: Without adenopathy or JVD. LUNGS: Clear to auscultation. HEART: Regular rate. S1, S2. ABDOMEN: Nontender. Bowel sounds present. MUSCULOSKELETAL: The patient without significant scoliosis, kyphosis, or lordosis. Upper extremity muscle strength is judged to be 5/5 for the major muscle groups in the upper extremity. The patient has a well-healed scar in the L4 through L5 area. Complains of some pain and discomfort in the L4-L5 dermatomal distribution as well as in the buttocks bilaterally. IMPRESSION: 1. Lumbar radiculopathy, status post lumbar fusion L4-L5 with rods and pedicle screws. 2. History of spinal stenosis. 3. Hypertension. 4. Hypercholesterolemia. 5. Benign prostatic hypertrophy. RECOMMENDATIONS: We discussed treatment options with the patient. Risks and benefits of an epidural steroid injection were discussed. Possible complications of the procedure were reviewed. They include but are not limited to infection, increased muscle soreness, bleeding, nerve damage, spinal headaches and the patient elects to proceed. PROCEDURE NOTE: The patient was taken to the procedure area. He was then assisted in getting on the examination table. His back was sterilely prepped with a Betadine solution. Fluoroscopy using anterior, posterior as well as lateral viewing were implemented. A 25-gauge needle was then used to gain access to the L5-S1 area. Aspiration was negative. A 17-gauge Tuohy with loss of resistance technique was then used to gain access to the epidural space. A total of 80 mg Depo-Medrol, 40 mg triamcinolone and 2 mL of 0.25% bupivacaine was injected. The patient tolerated the procedure well. He remained in the pain clinic for an appropriate amount of time. Total of 9 seconds fluoroscopy time was used. The patient's pain decreased to 0 at the time of discharge. He will follow up in the future as needed. [address] [address] PAIN MANAGEMENT CONSULTATION Name: GISSELLE DE LA TORRE Room #: REG [facility] Holland#: [id number] Admission: 09/17/18 ������������������ Attend Phys: Debra Gray MD Discharge: ������������������ Date of : 42 Report #: [id number] We would like to thank you for letting us participate in his care. We hope he continues to improve. ��������������������������������������������� ���������������������������������������� By: ��������������������������������������������� [id number] Debra Gray MD /med
[2018-09-17 09:15] VITALS: BP 116/66
--- NOTE | 2018-09-17 09:22 | NUR ---
Pain Clinic Assessment: 1. History of Osteoarthritis: NO History of Rheumatoid Arthritis: NO 2. Height: 5 ft. 6 in. 167.6 cm. Weight: 164.6 lb. oz. 74.662 kg. Patient's BMI: 26.6 3. Vital Signs: BP: 116/66 Pulse: 62 Resp: 16 Temp: 02 Sat: 99 ECG Mon: 4. Pain Intensity: 6-7 5. Fall Risk: Dizziness: N Needs help standing or walking: N Fallen in the last 3 months: N Fall risk comments: 6. Patient on Blood Thinner: None 7. History of Hypertension: Y 8. Opioid Therapy greater than 6 weeks: N Opiate Contract Signed: 9. Risk Assessment Tool Provided: LOW RISK 0/3 10. Functional Assessment Tool: 11. Recreational Drug Use: Never Drug Type: Tobacco Use: Never Smoker Tobacco Type: Amount or Packs/day: How Many Years: Alcohol Use: No Frequency: Quant:
== END | disposition home or self-care (01) ==
LOC: PAIN 06:54
DX: M54.16 Radiculopathy, lumbar region (principal); I10 Essential (primary) hypertension; E78.00 Pure hypercholesterolemia, unspecified; N40.0 Benign prostatic hyperplasia without lower urinary tract symptoms; Z79.899 Other long term (current) drug therapy

== ENCOUNTER → 2018-12-31 | Outpatient (CLI) | payer OTHER, BC ==
[~2018-12-31] VITALS: Ht 167.6 cm; Wt 73.9 kg
[~2018-12-31] MED LIST changes: +BUPROPION XL300 MG PO; +CARVEDILOL3.125 MG PO; +MYSOLINE50 MG PO; +NEURONTIN300 MG PO
[2018-12-31 12:51] VITALS: BP 147/74
--- NOTE | 2018-12-31 12:58 | NUR ---
Pain Clinic Assessment: 1. History of Osteoarthritis: NO History of Rheumatoid Arthritis: NO 2. Height: 5 ft. 6 in. 167.6 cm. Weight: 163.0 lb. oz. 73.936 kg. Patient's BMI: 26.3 3. Vital Signs: BP: 147/74 Pulse: 74 Resp: 16 Temp: 02 Sat: 99 ECG Mon: 4. Pain Intensity: 7-8 5. Fall Risk: Dizziness: N Needs help standing or walking: N Fallen in the last 3 months: N Fall risk comments: 6. Patient on Blood Thinner: None 7. History of Hypertension: Y 8. Opioid Therapy greater than 6 weeks: N Opiate Contract Signed: 9. Risk Assessment Tool Provided: LOW RISK 0 10. Functional Assessment Tool: 11. Recreational Drug Use: Never Drug Type: Tobacco Use: Never Smoker Tobacco Type: Amount or Packs/day: How Many Years: Alcohol Use: No Frequency: Quant:
--- NOTE | 2019-01-16 08:25 | HPC ---
[facility] [address] [place] [address] PAIN MANAGEMENT CONSULTATION Name: GISSELLE DE LA TORRE Room #: REG EDGAR PabloAwaisTaye#: [id number] Admission: 12/31/18 Attend Phys: Debra Gray MD Discharge: Date of : 42 Report #: [id number] THIS REPORT FOR: //name// CC: Brian Gray DATE OF SERVICE: 12/31/2018 CHIEF COMPLAINT: Return of back pain that radiates down into the buttocks and into the right leg and foot. HISTORY: The patient is a 78-year-old gentleman who has been seen and followed in the pain clinic in the past because of lumbar radiculopathy. Epidural steroid injections in the past have improved fruitful. As you may recall in the past, he did undergo low back surgery, this was in 03/2018. He still has some pain and discomfort in the low back areas. Epidural steroid injections have been helpful. He still has rods as well as screws in the lower portion of his back. Pain is more on the left side today. Given that he has received benefit from the injections in the past he has returned to the pain clinic with a request to undergo another injection. Overall, his pain in the low back area has continued to be problematic over the last 5 years. He notes some increased discomfort with standing, bending, climbing stairs. Pain improves somewhat with lying down. The patient went to a garden in [place]. After walking to the [facility] he noted some worsening of his pain. ALLERGIES: No known drug allergies. CURRENT MEDICATIONS: Spironolactone 25 mg, Zetia 10 mg, Cymbalta 60 mg, Flomax 0.4 mg, clonazepam 1 mg b.i.d., Linzess 145 mcg, losartan/hydrochlorothiazide 100/25, Norvasc 5 mg and Lipitor 40 mg. PAIN CLINIC ASSESSMENT AND PQRS: 1. The patient has some arthritic changes in the lower portion of his back and has had back fusion. He is not being treated for rheumatoid arthritis. 2. Height 5 feet 6 inches, weight 163 pounds, BMI is 26.3. 3. Blood pressure 147/74, pulse 74, respiratory rate 16, room air saturation 99%. 4. Pain intensity 7-10/18. 5. Fall risk. The patient has not fallen in the last 3 months. 6. Blood thinner. The patient is not on a blood thinning medication. 7. Hypertension. The patient is being treated for hypertension. 8. Opioids greater than 6 weeks. The patient receives medication from [facility], his primary physician. 9. Risk assessment tool, low for opioid use. 10. Functional assessment tool . 11. Recreational drug use: The patient denies. [address] [address] PAIN MANAGEMENT CONSULTATION Name: GISSELLE DE LA TORRE [id number] Admission: 12/31/18 Attend Phys: Debra Gray MD Discharge: Date of : 42 Report #: [id number] 12. Tobacco: The patient has never smoked. 13. Alcohol: The patient denies use of alcoholic beverages. PHYSICAL EXAMINATION: GENERAL: The patient is a well-developed, well-nourished white male. He appears his stated age. He is alert and oriented x 3. His affect is appropriate. Speech is fluent. HEENT: Normocephalic, atraumatic. Extraocular eye muscles intact. Sclerae nonicteric. Mucous membranes are moist. NECK: Without adenopathy or JVD. LUNGS: Clear to auscultation. HEART: Regular rate. S1, S2. ABDOMEN: Nontender. Bowel sounds present. MUSCULOSKELETAL: Without significant scoliosis, kyphosis or lordosis. Upper extremity muscle strength judged to be 5/5 for the major muscle groups in the upper extremity. The patient has a well-healed scar in the lower portion of his back at approximately L4 through the L5 area. He has some pain and discomfort in the L5-S1 dermatomal distribution at this juncture, which radiates down into his left buttocks primarily. IMPRESSION: 1. Lumbar radiculopathy, status post lumbar fusion at L4-L5 with rods and pedicle screws. 2. History of spinal stenosis. 3. Hypertension. 4. Hypercholesterolemia. 5. Benign prostatic hypertrophy. RECOMMENDATIONS: We discussed treatment options with the patient. Overall, the patient feels that he has gotten about 80% improvement with epidural steroid injections. He has returned today with the hope of undergoing another epidural injection. He notes that this pain does cause some worsening of pain that radiates down to his leg in the L5-S1 dermatomal distribution. PROCEDURE NOTE: We discussed treatment options with the patient. Risks and benefits of an epidural steroid injection were discussed. They include but are not limited to infection, worsening pain, no improvement in pain and the patient wishes to proceed. The patient was assisted in getting on examination table. His back was sterilely prepped with a Betadine solution. A pillow was placed under the abdomen to bolster and improve positioning. Fluoroscopy using anterior, posterior as well as lateral viewing were used to implement and proceed with the injection. His back was sterilely prepped. A 0.25% bupivacaine was infiltrated at the L5-S1 area. There was a 17-gauge Tuohy with loss of resistance technique was then advanced into the L5-S1 area. Aspiration was negative. A total of 80 mg Depo-Medrol, 40 mg triamcinolone and 2 mL of 0.25% bupivacaine was injected. The patient tolerated the procedure well. [facility] [address] [place] [address] PAIN MANAGEMENT CONSULTATION Name: GISSELLE DE LA TORRE Dulce Maria Room #: REG [facility].#: [id number] Admission: 12/31/18 Attend Phys: Debra Gray MD Discharge: Date of : 42 Report #: [id number] There were no complications. Pain decreased to 0 at the time of discharge. A total of 11 seconds fluoroscopy time was used. We would like to thank you for letting us participate in his care. We hope he continues to improve. <ELECTRONICALLY SIGNED> By: Debra Gray MD 01/16/19 0825 [id number] Debra Gray MD /nt
== END | disposition home or self-care (01) ==
LOC: PAIN 07:02
DX: M54.16 Radiculopathy, lumbar region (principal); G89.29 Other chronic pain; I10 Essential (primary) hypertension; E78.00 Pure hypercholesterolemia, unspecified; N40.0 Benign prostatic hyperplasia without lower urinary tract symptoms; Z98.890 Other specified postprocedural states; Z79.899 Other long term (current) drug therapy

== ENCOUNTER → 2019-09-23 | Outpatient (CLI) | payer OTHER, BC ==
[~2019-09-23] VITALS: Ht 167.6 cm; Wt 72.7 kg
[~2019-09-23] MED LIST changes: +ASPIR 8181 M1 PO; +CLONAZEPAM 0.50.5 M1 PO; -CLONAZEPAM 1 MG1 M1 PO; +FUROSEMIDE 40 M40 MG PO; +LIPITOR80 MG PO; +LOSARTAN POTASS50 MG PO; -LOSARTAN-HCTZ1 EAC3 PO; +MAGNESIUM250 M1 PO; +NORVASC 2.5 MG2.5 M1 PO
[2019-09-23 13:01] VITALS: BP 120/57
--- NOTE | 2019-09-23 13:38 | NUR ---
Pain Clinic Assessment: 1. History of Osteoarthritis: NO History of Rheumatoid Arthritis: NO 2. Height: 5 ft. 6 in. 167.6 cm. Weight: 160.2 lb. oz. 72.666 kg. Patient's BMI: 25.9 3. Vital Signs: BP: 120/57 Pulse: 53 Resp: 16 Temp: 02 Sat: 100 ECG Mon: 4. Pain Intensity: 7-9 5. Fall Risk: Dizziness: N Needs help standing or walking: N Fallen in the last 3 months: N Fall risk comments: 6. Patient on Blood Thinner: None 7. History of Hypertension: Y 8. Opioid Therapy greater than 6 weeks: N Opiate Contract Signed: 9. Risk Assessment Tool Provided: LOW RISK 0 10. Functional Assessment Tool: 11. Recreational Drug Use: Never Drug Type: Tobacco Use: Never Smoker Tobacco Type: Amount or Packs/day: How Many Years: Alcohol Use: No Frequency: Quant:
== END | disposition home or self-care (01) ==
LOC: PAIN 07:01
PROVIDERS: ATTEND Anesthesiology Pain Medicine
DX: M54.16 Radiculopathy, lumbar region (principal); G89.29 Other chronic pain; Z79.899 Other long term (current) drug therapy

== ENCOUNTER → 2020-01-20 | Outpatient (CLI) | payer OTHER, BC ==
[~2020-01-20] VITALS: Ht 167.6 cm; Wt 74.6 kg
[2020-01-20 09:30] VITALS: BP 155/79
--- NOTE | 2020-01-20 09:39 | NUR ---
Pain Clinic Assessment: 1. History of Osteoarthritis: EVERYWHERE History of Rheumatoid Arthritis: NO 2. Height: 5 ft. 6 in. 167.6 cm. Weight: 164.4 lb. oz. 74.571 kg. Patient's BMI: 26.5 3. Vital Signs: BP: 155/79 Pulse: 55 Resp: 16 Temp: 02 Sat: 98 ECG Mon: 4. Pain Intensity: 8-9 5. Fall Risk: Dizziness: N Needs help standing or walking: N Fallen in the last 3 months: N Fall risk comments: 6. Patient on Blood Thinner: None 7. History of Hypertension: Y 8. Opioid Therapy greater than 6 weeks: N Opiate Contract Signed: 9. Risk Assessment Tool Provided: LOW RISK 0 10. Functional Assessment Tool: 11. Recreational Drug Use: Never Drug Type: Tobacco Use: Never Smoker Tobacco Type: Amount or Packs/day: How Many Years: Alcohol Use: No Frequency: Quant:
== END | disposition home or self-care (01) ==
LOC: PAIN 01-18 09:00
PROVIDERS: ATTEND Anesthesiology Pain Medicine
DX: M54.16 Radiculopathy, lumbar region (principal); G89.29 Other chronic pain; Z98.890 Other specified postprocedural states; Z79.899 Other long term (current) drug therapy

== ENCOUNTER → 2020-08-17 | Outpatient (CLI) | payer OTHER, BC ==
[~2020-08-17] VITALS: Ht 167.6 cm; Wt 73.0 kg
[2020-08-17 10:51] VITALS: BP 135/57
--- NOTE | 2020-08-17 11:25 | NUR ---
Pain Clinic Assessment: 1. History of Osteoarthritis: GENERALIZED History of Rheumatoid Arthritis: NO 2. Height: 5 ft. 6 in. 167.6 cm. Weight: 161.0 lb. oz. 73.029 kg. Patient's BMI: 26.0 3. Vital Signs: BP: 135/57 Pulse: 53 Resp: 16 Temp: 02 Sat: 98 ECG Mon: 4. Pain Intensity: 7-8 5. Fall Risk: Dizziness: N Needs help standing or walking: N Fallen in the last 3 months: N Fall risk comments: 6. Patient on Blood Thinner: None 7. History of Hypertension: Y 8. Opioid Therapy greater than 6 weeks: N Opiate Contract Signed: 9. Risk Assessment Tool Provided: LOW RISK 0 10. Functional Assessment Tool: 11. Recreational Drug Use: Never Drug Type: Tobacco Use: Never Smoker Tobacco Type: Amount or Packs/day: How Many Years: Alcohol Use: No Frequency: Quant:
== END | disposition home or self-care (01) ==
LOC: PAIN 07:02
PROVIDERS: ATTEND Anesthesiology Pain Medicine
DX: M54.16 Radiculopathy, lumbar region (principal); G89.29 Other chronic pain; I10 Essential (primary) hypertension; E78.00 Pure hypercholesterolemia, unspecified; N40.0 Benign prostatic hyperplasia without lower urinary tract symptoms; F32.9 Major depressive disorder, single episode, unspecified; M19.90 Unspecified osteoarthritis, unspecified site; Z98.890 Other specified postprocedural states; Z79.899 Other long term (current) drug therapy; Z96.641 Presence of right artificial hip joint

== ENCOUNTER → 2020-11-04 | Outpatient (CLI) | payer OTHER, BC ==
[~2020-11-04] VITALS: Ht 167.6 cm; Wt 73.0 kg
[~2020-11-04] MED LIST changes: +PROSCAR 5MG TABL5 M1 PO; +VIT D PO
[2020-11-04 10:22] VITALS: BP 156/74
--- NOTE | 2020-11-04 10:34 | NUR ---
Pain Clinic Assessment: 1. History of Osteoarthritis: GENERALIZED History of Rheumatoid Arthritis: NO 2. Height: 5 ft. 6 in. 167.6 cm. Weight: 161.0 lb. oz. 73.029 kg. Patient's BMI: 26.0 3. Vital Signs: BP: 156/74 Pulse: 68 Resp: 14 Temp: 02 Sat: 97 ECG Mon: 4. Pain Intensity: 5 5. Fall Risk: Dizziness: N Needs help standing or walking: N Fallen in the last 3 months: N Fall risk comments: 6. Patient on Blood Thinner: None 7. History of Hypertension: Y 8. Opioid Therapy greater than 6 weeks: N Opiate Contract Signed: 9. Risk Assessment Tool Provided: LOW RISK 0 10. Functional Assessment Tool: 11. Recreational Drug Use: Never Drug Type: Tobacco Use: Never Smoker Tobacco Type: Amount or Packs/day: How Many Years: Alcohol Use: No Frequency: Quant:
== END | disposition home or self-care (01) ==
LOC: PAIN 06:56
PROVIDERS: ATTEND Anesthesiology Pain Medicine
DX: M79.18 Myalgia, other site (principal); M54.16 Radiculopathy, lumbar region; I10 Essential (primary) hypertension; E78.00 Pure hypercholesterolemia, unspecified; M19.90 Unspecified osteoarthritis, unspecified site; N40.0 Benign prostatic hyperplasia without lower urinary tract symptoms; Z98.890 Other specified postprocedural states; Z79.899 Other long term (current) drug therapy; Z96.641 Presence of right artificial hip joint; Z88.8 Allergy status to other drugs, medicaments and biological substances

== ENCOUNTER → 2021-02-17 | Outpatient (CLI) | payer OTHER, BC ==
[~2021-02-17] VITALS: Ht 167.6 cm; Wt 74.9 kg
[2021-02-17 09:07] VITALS: BP 139/71
--- NOTE | 2021-02-17 09:22 | NUR ---
Pain Clinic Assessment: 1. History of Osteoarthritis: GENERALIZED History of Rheumatoid Arthritis: NO 2. Height: 5 ft. 6 in. 167.6 cm. Weight: 165.2 lb. oz. 74.934 kg. Patient's BMI: 26.7 3. Vital Signs: BP: 139/71 Pulse: 53 Resp: 16 Temp: 02 Sat: 98 ECG Mon: 4. Pain Intensity: 7 5. Fall Risk: Dizziness: N Needs help standing or walking: N Fallen in the last 3 months: N Fall risk comments: 6. Patient on Blood Thinner: None 7. History of Hypertension: Y 8. Opioid Therapy greater than 6 weeks: N Opiate Contract Signed: 9. Risk Assessment Tool Provided: LOW RISK 0 10. Functional Assessment Tool: 11. Recreational Drug Use: Never Drug Type: Tobacco Use: Never Smoker Tobacco Type: Amount or Packs/day: How Many Years: Alcohol Use: Yes Frequency: Special Occasions Quant: 1
== END | disposition home or self-care (01) ==
LOC: PAIN 07:30
PROVIDERS: ATTEND Anesthesiology Pain Medicine
DX: M54.16 Radiculopathy, lumbar region (principal); G89.29 Other chronic pain; I10 Essential (primary) hypertension; E78.00 Pure hypercholesterolemia, unspecified; N40.0 Benign prostatic hyperplasia without lower urinary tract symptoms; F32.9 Major depressive disorder, single episode, unspecified; M19.90 Unspecified osteoarthritis, unspecified site; Z98.890 Other specified postprocedural states; Z79.899 Other long term (current) drug therapy; Z96.641 Presence of right artificial hip joint